=== PATIENT | female | born 1995 | race Caucasian/White ===

== ENCOUNTER 2018-03-29 17:21 | Emergency (ER) | payer OTHER ==
[~2018-03-29] VITALS: Ht 152.4 cm; Wt 61.2 kg
[2018-03-29] MEDS ORDERED: PROAIR HFA8.5 GM (17:36)
[2018-03-29] MEDS ORDERED: ASPIRIN325 PO (18:43)
[2018-03-29 19:18] VITALS: BP 106/80
== END 2018-03-29 19:27 | disposition home or self-care (01) ==
LOC: M.ERS 17:21
DX: R19.7 Diarrhea, unspecified (principal); R09.1 Pleurisy; J45.909 Unspecified asthma, uncomplicated; Z91.018 Allergy to other foods